=== PATIENT | female | born 1995 | race African-American/Black ===

== ENCOUNTER 2017-11-08 11:10 | Emergency (ER) | payer MEDICAID ==
[~2017-11-08] VITALS: Ht 157.5 cm; Wt 53.1 kg
[2017-11-08 14:07] LABS: Urine Bacteria NONE SEEN /hpf (None Seen); Urine Blood Negative /uL (Negative); Urine Specific Gravity 1.011 (1.001-1.035); Urine WBC 2 /hpf (0 - 5)
[2017-11-08 14:50] VITALS: BP 109/69
== END 2017-11-08 15:20 | disposition home or self-care (01) ==
LOC: ER 11:10
DX: R51 Headache (principal); F17.210 Nicotine dependence, cigarettes, uncomplicated; F12.10 Cannabis abuse, uncomplicated; V49.49XA Driver injured in collision with other motor vehicles in traffic accident, initial encounter; Y93.89 Activity, other specified; Y99.8 Other external cause status; Y92.410 Unspecified street and highway as the place of occurrence of the external cause
CPT/HCPCS: 70450; 81001; 81025

== ENCOUNTER 2021-06-09 11:43 | Emergency (ER) | payer MEDICAID, OTHER ==
[~2021-06-09] VITALS: Ht 157.5 cm; Wt 46.3 kg
[2021-06-09 11:43] VITALS: BP 110/63
== END 2021-06-09 12:57 | disposition home or self-care (01) ==
LOC: ER 11:43
DX: J20.9 Acute bronchitis, unspecified (principal); F17.210 Nicotine dependence, cigarettes, uncomplicated; F12.10 Cannabis abuse, uncomplicated
CPT/HCPCS: 71046